=== PATIENT | male | born 1970 | race Caucasian/White ===

== ENCOUNTER 2018-04-26 18:44 | Emergency (ER) | payer SELFPAY ==
[~2018-04-26] VITALS: Ht 172.7 cm; Wt 57.6 kg
[2018-04-26 18:45] VITALS: BP_SYST 130
[2018-04-26] MEDS ORDERED: ACETAMINOPHEN 500 MG TABLET PO ONE (19:15)
[2018-04-26 19:35] VITALS: BP_SYST 133
== END 2018-04-26 19:35 ==
LOC: SED 18:44
DX: M79.1 Myalgia (principal); Z88.1 Allergy status to other antibiotic agents
CPT/HCPCS: 99283